=== PATIENT | female | born 1975 | race African-American/Black ===

== ENCOUNTER 2016-04-20 17:32 | Emergency (ER) | payer OTHER, MEDICAID ==
[2016-04-20] MEDS ORDERED: IPRATROPIUM/ALBUTEROL 0.5-2.5 MG/3 ML AMPUL NEB ONE (17:46)
[2016-04-20] MEDS ORDERED: PREDNISONE 20 MG TABLET PO ONE (17:46)
--- NOTE | 2016-04-20 17:50 | ER Document Report ---
ED Medical Screen (RME) - General Stated Complaint: DIFFICULTY BREATHING Time seen by provider: 17:44 Mode of Arrival: Ambulatory Information source: Patient Notes: 40-year-old asthmatic female with cough and wheeze for 2 days. No bronchodilators at home. Coarse wheeze bilateral. I have greeted and performed a rapid initial assessment of this patient. A comprehensive ED assessment, evaluation of the patient, analysis of test results , and completion of the medical decision making process will be conducted by additional ED providers. TRAVEL OUTSIDE OF THE [place] IN LAST 30 DAYS: No - Related Data Allergies/Adverse Reactions: cetirizine HCl [From Zyrtec] Allergy (Mild, Verified 04/20/16 17:44) rash pollen Allergy (Uncoded 04/20/16 17:44) Past Medical History - Social History Family history: CAD, CVA - Past Medical History Cardiac Medical History: Denies: Hx Heart Murmur Pulmonary Medical History: Reports: Hx Asthma, Hx Bronchitis Denies: Hx Sleep Apnea, Hx Tuberculosis Neurological Medical History: Reports: Hx Migraine Psychiatric Medical History: Reports: Hx Bipolar Disorder, Hx Depression Denies: Hx Post Traumatic Stress Disorder, Hx Schizophrenia Past Surgical History: Reports: Hx Abdominal Surgery - umbilical hernia repair x2, Hx Section - x2, Hx Umbilical Hernia - x2 - Immunizations Immunizations up to date: Yes Hx Diphtheria, Pertussis, Tetanus Vaccination: Yes - 2007 Physical Exam - Vital signs Vitals: Temp Pulse Resp BP Pulse Ox 98.0 F 103 H 18 134/83 H 99 04/20/16 17:37 04/20/16 17:37 04/20/16 17:37 04/20/16 17:37 04/20/16 17:37 Course - Vital Signs Vital signs: Temp Pulse Resp BP Pulse Ox 98.0 F 103 H 18 134/83 H 99 04/20/16 17:37 04/20/16 17:37 04/20/16 17:37 04/20/16 17:37 04/20/16 17:37
[2016-04-20] MEDS ORDERED: ALBUTEROL SULFATE 0.083% NEB 2.5 MG/3 ML AMPUL NEB ONE (18:52)
--- NOTE | 2016-04-20 19:44 | ER Document Report ---
ED Respiratory Problem - General Chief Complaint: Chest Congestion Stated Complaint: DIFFICULTY BREATHING Time seen by provider: 18:15 Mode of Arrival: Ambulatory Information source: Patient TRAVEL OUTSIDE OF THE [place] IN LAST 30 DAYS: No - HPI Patient complains to provider of: Cough Onset: This morning Duration: Worse/persistent Initiating Event: URI Quality of pain: Achy Severity: Mild Pain Level: 1 Short of Breath: Mild Chest pain/discomfort: Tightness Cough: Productive Sputum amount: Small Sputum color: Creamy Sputum consistency: Mucoid Associated symptoms: Congestion, Cough, Short of breath Similar symptoms previously: Yes Recently seen / treated by doctor: No Notes: Patient is a 40-year-old female with a history of asthma who presents to the emergency room complaining of painful productive cough 2 days, she denies a fever, cough is productive of creamy colored mucus, states she ran out of her inhale and on antibiotics or steroids recently, no recent travel, no sick contacts - Related Data Allergies/Adverse Reactions: cetirizine HCl [From [employer] Allergy (Mild, Verified 04/20/16 17:44) rash pollen Allergy (Uncoded 04/20/16 17:44) Past Medical History - General Information source: Patient - Social History Smoking Status: Unknown if Ever Smoked Chew tobacco use (# tins/day): No Frequency of alcohol use: Occasional Drug Abuse: None Family History: Reviewed & Not Pertinent Patient has suicidal ideation: No Patient has homicidal ideation: No - Past Medical History Cardiac Medical History: Denies: Hx Heart Murmur Pulmonary Medical History: Reports: Hx Asthma, Hx Bronchitis Denies: Hx Sleep Apnea, Hx Tuberculosis Neurological Medical History: Reports: Hx Migraine Renal/ Medical History: Denies: Hx Peritoneal Dialysis Psychiatric Medical History: Reports: Hx Bipolar Disorder, Hx Depression Denies: Hx Post Traumatic Stress Disorder, Hx Schizophrenia Past Surgical History: Reports: Hx Abdominal Surgery - umbilical hernia repair x2, Hx Section - x2, Hx Umbilical Hernia - x2 - Immunizations Immunizations up to date: Yes Hx Diphtheria, Pertussis, Tetanus Vaccination: Yes - 2007 Review of Systems - Review of Systems Constitutional: No symptoms reported EENT: No symptoms reported Cardiovascular: No symptoms reported Respiratory: See HPI Gastrointestinal: No symptoms reported Genitourinary: No symptoms reported Female Genitourinary: No symptoms reported Musculoskeletal: No symptoms reported Skin: No symptoms reported Hematologic/Lymphatic: No symptoms reported Neurological/Psychological: No symptoms reported -: Yes All other systems reviewed and negative Physical Exam - Vital signs Vitals: Temp Pulse Resp BP Pulse Ox 98.0 F 103 H 18 134/83 H 99 04/20/16 17:37 04/20/16 17:37 04/20/16 17:37 04/20/16 17:37 04/20/16 17:37 Interpretation: Normal - General General appearance: Appears well, Alert - HEENT Head: Normocephalic, Atraumatic Eyes: Normal Pupils: PERRL - Respiratory Respiratory status: No respiratory distress Chest status: Nontender Breath sounds: Wheezing - Mild Chest palpation: Normal - Cardiovascular Rhythm: Regular Heart sounds: Normal auscultation Murmur: No - Abdominal Inspection: Normal Distension: No distension Bowel sounds: Normal Tenderness: Nontender Organomegaly: No organomegaly - Back Back: Normal, Nontender - Extremities General upper extremity: Normal inspection, Nontender, Normal color, Normal ROM , Normal temperature General lower extremity: Normal inspection, Nontender, Normal color, Normal ROM , Normal temperature, Normal weight bearing. No: Mati's sign - Neurological Neuro grossly intact: Yes Cognition: Normal Orientation: AAOx4 Kurt Coma Scale Eye Opening: Spontaneous Kurt Coma Scale Verbal: Oriented [place] Coma Scale Motor: Obeys Commands Kurt Coma Scale Total: 15 Speech: Normal Motor strength normal: LUE, RUE, LLE, RLE Sensory: Normal - Psychological Associated symptoms: Normal affect, Normal mood - Skin Skin Temperature: Warm Skin Moisture: Dry Skin Color: Normal Course - Re-evaluation Re-evalutation: 04/21/16 03:50 Patient reports feeling much better after breathing treatments, chest x-ray results were discussed with her at bedside, vital signs are, patient symptoms consistent with bronchitis and asthma exacerbation, she was discharged with an inhaler, steroids and information for follow-up, advised to return if symptoms worsen, acknowledges understanding and agreement with this plan - Vital Signs Vital signs: Temp Pulse Resp BP Pulse Ox 98.4 F 88 20 127/74 H 97 04/20/16 19:56 04/20/16 19:56 04/20/16 19:56 04/20/16 19:56 04/20/16 19:56 - Diagnostic Test Radiology reviewed: Image reviewed, Reports reviewed Discharge - Discharge Clinical Impression: Viral upper respiratory illness, Asthma exacerbation Condition: Stable Disposition: HOME, SELF-CARE Instructions: Upper Respiratory Illness ([facility]), Viral Syndrome ([facility]), Asthma ( [facility]) Additional Instructions: Follow up with your primary care provider in one to 2 days. Return to the emergency room immediately if symptoms worsen or any additional concerns. Prescriptions: Albuterol Sulfate [Proair HFA Inhalation Aerosol 8.5 gm MDI] 1 puff IH Q4 PRN # 1 mdi PRN Reason: Prednisone 40 mg PO DAILY #8 tablet
[2016-04-20 20:00] VITALS: BP 127/74
[2016-04-20] MEDS ORDERED: ALBUTEROL SULFATE HFA (90 MCG/PUFF) 8 GM MDI (1 MDI/ER DISP) IH SCH (22:00)
== END 2016-04-20 20:00 | disposition home or self-care (01) ==
LOC: ER 17:32
DX: J06.9 Acute upper respiratory infection, unspecified (principal); J45.901 Unspecified asthma with (acute) exacerbation; R09.89 Other specified symptoms and signs involving the circulatory and respiratory systems; R05 Cough; R06.02 Shortness of breath
CPT/HCPCS: 94640 ×2; 99283; 71020; J7512; J3490; J7620

== ENCOUNTER 2016-04-29 16:06 | Emergency (ER) | payer OTHER, MEDICAID ==
--- NOTE | 2016-04-29 16:14 | ER Document Report ---
ED Medical Screen (RME) - General Stated Complaint: DIFFICULTY BREATHING Mode of Arrival: Ambulatory Information source: Patient Notes: Presents to the ED with c/o coughing for over a week. [facility]. Denies fever. Reports cough. Speaking in clear voice. Reports she cannot lay down flat at night because she coughs all night. Denies cardiac history. Reports history of asthma. I have greeted and performed a rapid initial assessment of this patient. A comprehensive ED assessment and evaluation of the patient, analysis of test results and completion of the medical decision making process will be conducted by additional ED providers. TRAVEL OUTSIDE OF THE [place] IN LAST 30 DAYS: No - Related Data Allergies/Adverse Reactions: cetirizine HCl [From [employer]] Allergy (Mild, Verified 04/29/16 16:09) rash pollen Allergy (Uncoded 04/29/16 16:09) Past Medical History - Social History Family history: CAD, CVA - Past Medical History Cardiac Medical History: Denies: Hx Heart Murmur Pulmonary Medical History: Reports: Hx Asthma, Hx Bronchitis Denies: Hx Sleep Apnea, Hx Tuberculosis Neurological Medical History: Reports: Hx Migraine Renal/ Medical History: Denies: Hx Peritoneal Dialysis Psychiatric Medical History: Reports: Hx Bipolar Disorder, Hx Depression Denies: Hx Post Traumatic Stress Disorder, Hx Schizophrenia Past Surgical History: Reports: Hx Abdominal Surgery - umbilical hernia repair x2, Hx Section - x2, Hx Umbilical Hernia - x2 - Immunizations Immunizations up to date: Yes Hx Diphtheria, Pertussis, Tetanus Vaccination: Yes - 2007 Physical Exam - Vital signs Vitals: Temp Pulse Resp BP Pulse Ox 98.3 F 82 18 143/106 H 96 04/29/16 16:11 04/29/16 16:11 04/29/16 16:11 04/29/16 16:11 04/29/16 16:11 Course - Vital Signs Vital signs: Temp Pulse Resp BP Pulse Ox 98.3 F 82 18 143/106 H 96 04/29/16 16:11 04/29/16 16:11 04/29/16 16:11 04/29/16 16:11 04/29/16 16:11
--- NOTE | 2016-04-29 17:30 | ER Document Report ---
ED General - General Chief Complaint: Asthma Exacerbation Stated Complaint: DIFFICULTY BREATHING Mode of Arrival: Ambulatory TRAVEL OUTSIDE OF THE [place] IN LAST 30 DAYS: No - HPI Patient complains to provider of: difficulty breathing Notes: Patient coming in for further evaluation [facility] concerned about possible walking pneumonia. Patient has a history of asthma states her last few weeks there is since April 19 having difficulty breathing. Patient also states she's had difficulty lying flat. Patient denies any chest pain Sherri pain nausea vomiting diarrhea fevers chills recent travel recent antibiotics. Patient states she has been using her inhaler and has taken recent burst of steroids. Last cough denies any productive cough - Related Data Allergies/Adverse Reactions: cetirizine HCl [From [employer]] Allergy (Mild, Verified 04/29/16 16:09) rash pollen Allergy (Uncoded 04/29/16 16:09) Past Medical History - General Information source: Patient - Social History Smoking Status: Unknown if Ever Smoked Chew tobacco use (# tins/day): No Frequency of alcohol use: None Drug Abuse: None Family History: Reviewed & Not Pertinent Patient has suicidal ideation: No Patient has homicidal ideation: No - Past Medical History Cardiac Medical History: Denies: Hx Heart Murmur Pulmonary Medical History: Reports: Hx Asthma, Hx Bronchitis Denies: Hx Sleep Apnea, Hx Tuberculosis Neurological Medical History: Reports: Hx Migraine Renal/ Medical History: Denies: Hx Peritoneal Dialysis Psychiatric Medical History: Reports: Hx Bipolar Disorder, Hx Depression Denies: Hx Post Traumatic Stress Disorder, Hx Schizophrenia Past Surgical History: Reports: Hx Abdominal Surgery - umbilical hernia repair x2, Hx Section - x2, Hx Umbilical Hernia - x2 - Immunizations Immunizations up to date: Yes Hx Diphtheria, Pertussis, Tetanus Vaccination: Yes - 2007 Review of Systems - Review of Systems Constitutional: No symptoms reported EENT: No symptoms reported Cardiovascular: No symptoms reported Respiratory: Short of breath Gastrointestinal: No symptoms reported Genitourinary: No symptoms reported Female Genitourinary: No symptoms reported Musculoskeletal: No symptoms reported Skin: No symptoms reported Hematologic/Lymphatic: No symptoms reported Neurological/Psychological: No symptoms reported -: Yes All other systems reviewed and negative Physical Exam - Vital signs Vitals: Temp Pulse Resp BP Pulse Ox 98.3 F 82 18 143/106 H 96 04/29/16 16:11 04/29/16 16:11 04/29/16 16:11 04/29/16 16:11 04/29/16 16:11 Interpretation: Normal - General General appearance: Appears well, Alert - HEENT Head: Normocephalic, Atraumatic Eyes: Normal Pupils: PERRL - Respiratory Respiratory status: No respiratory distress Chest status: Nontender Breath sounds: Rhonchi Chest palpation: Normal - Cardiovascular Rhythm: Regular Heart sounds: Normal auscultation Murmur: No - Abdominal Inspection: Normal Distension: No distension Bowel sounds: Normal Tenderness: Nontender Organomegaly: No organomegaly - Back Back: Normal, Nontender - Extremities General upper extremity: Normal inspection, Nontender, Normal color, Normal ROM , Normal temperature General lower extremity: Normal inspection, Nontender, Normal color, Normal ROM , Normal temperature, Normal weight bearing. No: Mati's sign - Neurological Neuro grossly intact: Yes Cognition: Normal Orientation: AAOx4 Kurt Coma Scale Eye Opening: Spontaneous [place] Coma Scale Verbal: Oriented Kurt Coma Scale Motor: Obeys Commands [place] Coma Scale Total: 15 Speech: Normal Motor strength normal: LUE, RUE, LLE, RLE Sensory: Normal - Psychological Associated symptoms: Normal affect, Normal mood - Skin Skin Temperature: Warm Skin Moisture: Dry Skin Color: Normal Course - Re-evaluation Re-evalutation: 04/29/16 19:23 Patient's chest x-ray shows no signs pneumonia. 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 and have a sleep study performed - Vital Signs Vital signs: Temp Pulse Resp BP Pulse Ox 98.2 F 78 20 125/78 98 04/29/16 18:51 04/29/16 18:51 04/29/16 18:51 04/29/16 18:51 04/29/16 18:51 Discharge - Discharge Clinical Impression: Asthma Qualifiers: Asthma severity: unspecified severity Asthma complication type: uncomplicated Qualified Code(s): J45.909 - Unspecified asthma, uncomplicated Dyspnea Qualifiers: Dyspnea type: unspecified Qualified Code(s): R06.00 - Dyspnea, unspecified Condition: Good Disposition: HOME, SELF-CARE Instructions: Asthma ([facility]), Dyspnea, Nonspecific ([facility]) Additional Instructions: Your chest x-ray shows no signs of pneumonia today. More likely your having difficulty breathing due to the outbreak of pollen in the area. I will continue your albuterol inhaler 2 puffs every 4 hours. We also start you on a medication to help with allergies and asthma called Mariana. I would highly recommend following up with your provider for possible pulmonary consult and also for possible sleep study. Prescriptions: Montelukast Sodium [Singulair 10 mg Tablet] 10 mg PO QHS #30 tablet Albuterol Sulfate [Proair HFA] 1 - 2 puff IH Q4 PRN #1 inhaler PRN Reason: Forms: Return to Work Referrals: LILLY MARQUEZ DO [Primary Care Provider] - Follow up as needed
[2016-04-29] MEDS ORDERED: ALBUTEROL SULFATE HFA (90 MCG/PUFF) 8 GM MDI (1 MDI/ER DISP) IH ONE (17:31)
[2016-04-29 18:55] VITALS: BP 125/78
== END 2016-04-29 18:55 | disposition home or self-care (01) ==
LOC: ER 16:06
DX: J45.909 Unspecified asthma, uncomplicated (principal); R06.00 Dyspnea, unspecified
CPT/HCPCS: 99285; 71020; J3490

== ENCOUNTER 2016-10-24 17:53 | Emergency (ER) | payer OTHER, MEDICAID ==
[2016-10-24 18:26] VITALS: BP 137/87
== END 2016-10-24 18:50 | disposition left against medical advice (07) ==
LOC: ER 17:53
DX: Z53.9 Procedure and treatment not carried out, unspecified reason (principal); R03.0 Elevated blood-pressure reading, without diagnosis of hypertension

== ENCOUNTER 2016-10-25 13:47 | Emergency (ER) | payer OTHER, MEDICAID ==
[2016-10-25 14:04] VITALS: BP 145/95
[2016-10-25] MEDS ORDERED: IBUPROFEN 800 MG TABLET PO ONE (14:46)
--- NOTE | 2016-10-25 14:49 | ER Document Report ---
ED Headache - General Chief Complaint: Headache Stated Complaint: HEADACHE Time Seen by Provider: 10/25/16 14:20 Mode of Arrival: Ambulatory Information source: Patient Notes: 41-year-old female presents to ED for headache with stiff neck for 3 or 4 days. She states she has a history of migraines. She states her cycle was a little bit late and then it started but her headache continued. States they got worse 2 days ago when she took some ibuprofen which relieved the headache and then the next day the headache came back again. States she has not taken any ibuprofen since then. TRAVEL OUTSIDE OF THE [place] IN LAST 30 DAYS: No - HPI Patient complains to provider of: Headache, "Migraine" Patient reports: Frequent migraines, Hx chronic headaches Onset: Other - 3 or 4 days ago Onset was: Gradual Timing: Still present Quality of pain: Achy, Throbbing Severity: Severe Pain Level: 5 Associated symptoms: Neck pain. denies: Dizzy, Double/blurred vision, Fainting , Fever, Lightheaded, Memory loss, Motion sickness, Motor/sensory loss to arm, Nausea/vomiting, Photophobia, Speech problems, Stiff neck, Sweaty, Tingling/ numb sensation, Trouble walking Exacerbated by: Noise, Movement Similar symptoms previously: Yes Recently seen / treated by doctor: No - Related Data Allergies/Adverse Reactions: cetirizine HCl [From Zyrtec] Allergy (Mild, Verified 10/25/16 14:03) rash pollen Allergy (Uncoded 10/25/16 14:03) Past Medical History - General Information source: Patient - Social History Smoking Status: Former Smoker Cigarette use (# per day): No Chew tobacco use (# tins/day): No Smoking Education Provided: No Frequency of alcohol use: Occasional Drug Abuse: None Occupation: none Lives with: Family - children Family History: Arthritis, CVA, DM, Hyperlipidemia, Hypertension. denies: CAD, COPD, Malignancy, Thyroid Disfunction Patient has suicidal ideation: No Patient has homicidal ideation: No - Past Medical History Cardiac Medical History: Reports: None Pulmonary Medical History: Reports: Hx Asthma, Hx Bronchitis EENT Medical History: Reports: None Neurological Medical History: Reports: Hx Migraine Endocrine Medical History: Reports: None Renal/ Medical History: Reports: None Malignancy Medical History: Reports: None GI Medical History: Reports: None Musculoskeltal Medical History: Reports None Skin Medical History: Reports None Psychiatric Medical History: Reports: Hx Anxiety, Hx Bipolar Disorder, Hx Depression Traumatic Medical History: Reports: None Infectious Medical History: Reports: None Past Surgical History: Reports: Hx Section - x2, Hx Umbilical Hernia - x2 - Immunizations Immunizations up to date: Yes Hx Diphtheria, Pertussis, Tetanus Vaccination: Yes - 2007 Review of Systems - Review of Systems Constitutional: No symptoms reported EENT: No symptoms reported, Nose discharge, Sinus discharge Cardiovascular: No symptoms reported Respiratory: No symptoms reported Gastrointestinal: No symptoms reported Genitourinary: No symptoms reported Female Genitourinary: No symptoms reported Musculoskeletal: No symptoms reported Skin: No symptoms reported Hematologic/Lymphatic: No symptoms reported Neurological/Psychological: Headaches. denies: Weakness, Gait changes, Loss of power, Seizure, Numbness, Tingling, Tremor -: Yes All other systems reviewed and negative Physical Exam - Vital signs Vitals: Temp Pulse Resp BP Pulse Ox 98.1 F 59 L 20 145/95 H 99 10/25/16 14:03 10/25/16 14:03 10/25/16 14:03 10/25/16 14:03 10/25/16 14:03 Interpretation: Normal - General General appearance: Appears well, Alert - HEENT Head: Normocephalic, Atraumatic Eyes: Normal Pupils: PERRL Ears: Normal External canal: Normal Tympanic membrane: Normal Sinus: Normal Nasal: Purulent discharge, Swelling Mouth/Lips: Normal Mucous membranes: Normal Pharynx: Post nasal drainage - Respiratory Respiratory status: No respiratory distress Chest status: Nontender Breath sounds: Normal Chest palpation: Normal - Cardiovascular Rhythm: Regular Heart sounds: Normal auscultation Murmur: No - Abdominal Inspection: Normal Distension: No distension Bowel sounds: Normal Tenderness: Nontender Organomegaly: No organomegaly - Back Back: Normal, Nontender - Extremities General upper extremity: Normal inspection, Nontender, Normal color, Normal ROM , Normal temperature General lower extremity: Normal inspection, Nontender, Normal color, Normal ROM , Normal temperature, Normal weight bearing. No: Mati's sign - Neurological Neuro grossly intact: Yes Cognition: Normal Orientation: AAOx4 [place] Coma Scale Eye Opening: Spontaneous Kurt Coma Scale Verbal: Oriented [place] Coma Scale Motor: Obeys Commands [place] Coma Scale Total: 15 Speech: Normal Cranial nerves: Normal Cerebellar coordination: Normal Motor strength normal: LUE, RUE, LLE, RLE Additional motor exam normals: Equal director of marketing Babinski reflex: Normal (flexor plantar) Sensory: Normal - Psychological Associated symptoms: Normal affect, Normal mood - Skin Skin Temperature: Warm Skin Moisture: Dry Skin Color: Normal Course - Re-evaluation Re-evalutation: 10/25/16 14:55 Patient alert and oriented speaking in full sentences. She is able to walk around the room with no trouble. She has no neuro deficits. Pupils equal react to light. Patient does have signs and symptoms of upper respiratory infection. She has a history of migraines and is not taking any medication for this headache that is, gone for 4 days except for ibuprofen once twice 2 days ago. - Vital Signs Vital signs: Temp Pulse Resp BP Pulse Ox 98.1 F 59 L 20 145/95 H 99 10/25/16 14:03 10/25/16 14:03 10/25/16 14:03 10/25/16 14:03 10/25/16 14:03 Discharge - Discharge Clinical Impression: Headache Qualifiers: Headache type: unspecified Headache chronicity pattern: unspecified pattern Intractability: not intractable Qualified Code(s): R51 - Headache Condition: Stable Disposition: HOME, SELF-CARE Instructions: Family Physicians / Practices Additional Instructions: HEADACHE: The physician does not feel that the headache you are experiencing has a serious underlying cause. Most headaches are due to emotional stress, with resultant muscle tension (tension headache). Occasionally, headaches are secondary to changes in the blood vessels of the scalp (vascular headache and migraine headache). Sometimes, a headache is the first symptom of another developing illness, such as a viral infection. You have no evidence of stroke, bleeding, meningitis, or other serious cause of your headache. The treatment of headaches varies with the severity and cause of the pain. Not all headaches need pain shots. In fact, there is evidence that using narcotics for headaches may make them worse in the long run. The physician will determine the therapy that's in your best interest. If you develop a fever, if the headache is different from any you've previously experienced, or if the headache progressively worsens, then call your physician at once or go to the emergency room. USE OF DIPHENHYDRAMINE: Diphenhydramine (Benadryl) is an antihistamine and has been recommended to help treat your headache and to prevent side effects of other medications used to treat headaches. The medication can be repeated four times daily. Age Elixir (12.5 mg/tsp) 25 mg pill adult 1-2 tabs Antihistamines may cause drowsiness, especially with the first dose. Do not operate machinery or drive while under the effects of the medication. Do not combine the medication with alcohol, or with any other medication without talking to your doctor. ANTINAUSEA MEDICATION: You have been given a medication to suppress nausea and vomiting. This type of medication can be given as a shot, pill, or suppository. It will usually last for many hours. Pills and shots usually last six to eight hours, suppositories last about 12 hours. For the typical illness, only one or two doses of the medication may be necessary. Mild lightheadedness may occur. This type of medicine can cause drowsiness. Do not drive or operate dangerous machinery while under its influence. Do not mix with alcohol. See your doctor at once if you have muscle spasms or tightness, or uncontrollable motions (particularly of the neck, mouth, or jaw). Persistent vomiting or severe lightheadedness should also be evaluated by the physician. Ibuprofen Ibuprofen is an excellent, safe drug for pain control. In addition, it has potent antiinflammatory effects which are beneficial, especially in the treatment of injuries, arthritis, or tendonitis. It's best to take ibuprofen with food. Persons with ulcer disease or allergy to aspirin should notify their physician of this before taking ibuprofen. Take the medication exactly as prescribed. Don't take additional doses unless instructed to do so by your doctor. If you develop wheezing, shortness of breath, hives, faintness, stomach pain, vomiting, or dark black stools, return for re-evaluation at once. FOLLOW-UP CARE: If you have been referred to a physician for follow-up care, call the physician s office for an appointment as you were instructed or within the next two days. If you experience worsening or a significant change in your symptoms, notify the physician immediately or return to the Emergency Department at any time for re-evaluation. Prescriptions: Prochlorperazine Maleate [Compazine 10 mg Tablet] 10 mg PO Q6HP PRN #10 tablet PRN Reason: Ibuprofen 600 mg PO Q8HP PRN #20 tablet PRN Reason: Forms: Elevated Blood Pressure
== END 2016-10-25 15:01 | disposition home or self-care (01) ==
LOC: ER 13:47
DX: R51 Headache (principal); M43.6 Torticollis; J34.89 Other specified disorders of nose and nasal sinuses; J45.909 Unspecified asthma, uncomplicated; R09.82 Postnasal drip; Z86.69 Personal history of other diseases of the nervous system and sense organs; Z88.8 Allergy status to other drugs, medicaments and biological substances; Z91.048 Other nonmedicinal substance allergy status; Z87.891 Personal history of nicotine dependence
CPT/HCPCS: 99283

== ENCOUNTER 2017-03-17 14:02 | Emergency (ER) | payer OTHER, MEDICAID ==
[2017-03-17] MEDS ORDERED: IPRATROPIUM/ALBUTEROL 0.5-2.5 MG/3 ML AMPUL NEB ONE (14:53)
[2017-03-17] MEDS ORDERED: DEXAMETHASONE SOD PHOS INJ 10 MG/1 ML VIAL IM ONE (14:53)
--- NOTE | 2017-03-17 15:00 | ER Document Report ---
HPI - HPI Pain Level: 5 Notes: Patient is a 41-year-old female with a history of asthma who presents to the ED complaining of having 2 asthma flareups today and once daily over the last couple days. Pt has had occ wheezing and dry cough when she is wheezy. Patient states that she has been using her inhaler with some relief, but believes that she needs a nebulizer and may be a steroid. Patient states that she has otherwise been well without any acute illness. Patient denies any smoking or IV drug use. Patient states that she is able to ambulate without any worsening symptoms, chest pain, or dyspnea on exertion. Denies any headache, fever, neck pain, URI, sore throat, chest pain, palpitations, syncope , shortness of breath, dyspnea, abdominal pain, nausea/vomiting/diarrhea, urinary retention, dysuria, hematuria, or rash. Patient denies any prolonged travel, prolonged immobilization, hormone replacement, recent surgery/trauma, previous DVT/PE. - ROS Systems Reviewed and Negative: Yes All other systems reviewed and negative - REPRODUCTIVE Reproductive: DENIES: : Past Medical History - Social History Smoking Status: Never Smoker Family History: Arthritis, CVA, DM, Hyperlipidemia, Hypertension. denies: CAD, COPD, Malignancy, Thyroid Disfunction - Past Medical History Cardiac Medical History: Denies: Hx Heart Murmur Pulmonary Medical History: Reports: Hx Asthma, Hx Bronchitis Denies: Hx Sleep Apnea, Hx Tuberculosis Neurological Medical History: Reports: Hx Migraine Renal/ Medical History: Denies: Hx Peritoneal Dialysis Psychiatric Medical History: Reports: Hx Anxiety, Hx Bipolar Disorder, Hx Depression Denies: Hx Post Traumatic Stress Disorder, Hx Schizophrenia Past Surgical History: Reports: Hx Abdominal Surgery - umbilical hernia repair x2, Hx Section - x2, Hx Umbilical Hernia - x2 - Immunizations Immunizations up to date: Yes Hx Diphtheria, Pertussis, Tetanus Vaccination: Yes - 2007 Vertical Provider Document - CONSTITUTIONAL Agree With Documented VS: Yes Notes: PHYSICAL EXAMINATION: GENERAL: Well-appearing, well-nourished and in no acute distress. A&Ox4. Speaks in clear complete sentences w/o distress. HEAD: Atraumatic, normocephalic. EYES: Pupils equal round and reactive to light, extraocular movements intact, sclera anicteric, conjunctiva are normal. ENT: EAC clear b/l. TM's intact b/l without erythema, fluid, or perforation. Nares patent and without discharge. oropharynx clear without exudates. No tonsilar hypertrophy or erythema. Moist mucous membranes. No sinus tenderness. NECK: Normal range of motion, supple without lymphadenopathy LUNGS: Breath sounds clear to auscultation bilaterally and equal. No wheezes rales or rhonchi. HEART: Regular rate and rhythm without murmurs, rubs, gallops. ABDOMEN: Soft, nontender, nondistended abdomen. No guarding, no rebound. No masses appreciated. Normal bowel sounds present. No CVA tenderness bilaterally. Musculoskeletal: FROM to passive/active. Strength 5+/5. Mati neg. no calf erythema/swelling. Extremities: No cyanosis, clubbing, or edema b/l. Peripheral pulses 2+. Capillary refill less than 3 seconds. NEUROLOGICAL: Normal speech, normal gait. Normal sensory, motor exams PSYCH: Normal mood, normal affect. SKIN: Warm, Dry, normal turgor, no rashes or lesions noted. - INFECTION CONTROL TRAVEL OUTSIDE OF THE [place] IN LAST 30 DAYS: No - RESPIRATORY O2 Sat by Pulse Oximetry: 99 Course - Re-evaluation Re-evalutation: 03/17/17 15:20 Patient is an afebrile, well-hydrated, 41-year-old female who presents ED with intermittent episodes of asthma exacerbations. Vitals are stable. PE is otherwise unremarkable. At this time there is no severe asthma exacerbation on exam. I did provide patient with a DuoNeb and Decadron. Patient does have an albuterol inhaler which he uses as needed. No other labs or imaging warranted at this time based on H&P. Low suspicion for any ACS, PE, pneumothorax, pericarditis, dissection, respiratory compromise, severe dehydration, sepsis, meningitis, or other systemic emergent condition at this time. Patient is aware that her condition can change from initial presentation and she needs to monitor symptoms closely and seek medical attention for any acute changes. Recommend conservative measures for symptoms. Recheck with your PCM in 3-5 days. Consider consult with a child caregiver private home as well. Return to the ED with any worsening/concerning symptoms otherwise as reviewed in discharge. Patient is in agreement. - Vital Signs Vital signs: Temp Pulse Resp BP Pulse Ox 99.3 F 67 18 125/82 99 03/17/17 14:06 03/17/17 14:06 03/17/17 14:06 03/17/17 14:06 03/17/17 14:06 Discharge - Discharge Clinical Impression: Asthma Qualifiers: Asthma severity: mild Asthma persistence: intermittent Asthma complication type : uncomplicated Qualified Code(s): J45.20 - Mild intermittent asthma, uncomplicated Condition: Stable Disposition: HOME, SELF-CARE Instructions: Asthma ([facility]) Additional Instructions: Maintain adequate fluid intake Take meds as directed tylenol/ibuprofen as needed over the counter cold medication as needed for symptoms Humidified air may help F/u: with your PCM in 3-5 days for a recheck Return to the ED with any fever, worsening pain, chest pain, palpitations, syncope, worsening JOSUE, neck pain/stiffness, shortness of breath, wheezing, drooling, trouble swallowing/breathing, abdominal pain, n/v/d, rash, or worsening/concerning symptoms otherwise. Referrals: MYLA VELIZ MD [ACTIVE STAFF] - Follow up as needed [facility] [Provider Group] - Follow up in 3-5 days
[2017-03-17 16:03] VITALS: BP 115/72
== END 2017-03-17 16:04 | disposition home or self-care (01) ==
LOC: ER 14:02
DX: J45.20 Mild intermittent asthma, uncomplicated (principal); R05 Cough
CPT/HCPCS: 94640; 99284; 96372; J1100; J7620